=== PATIENT | male | born 1975 | race Caucasian/White ===

== ENCOUNTER 2020-04-28 04:14 | Emergency (ER) | payer SELFPAY ==
[~2020-04-28] VITALS: Ht 165 cm; Wt 77.0 kg
--- OUTSIDE RECORDS SUMMARY | 2020-04-28 04:19 | XMS REPORT | Continuity of Care Document ---
Author Organization Unknown Address Unknown Phone Unavailable Allergies There is no data. Medications There is no data. Problems There is no data. Procedures There is no data. Results There is no data. Encounters ACCT No. Visit Date/Time Discharge Status Pt. Type Provider Facility Loc./Unit Complaint [id number] 04/28/2020 04:16:[address] Emergency LATHA KOROMA DO [facility] ER SORE THROAT
[2020-04-28] MEDS ORDERED: AZIT500T PO (04:56)
--- NOTE | 2020-04-28 04:57 | ED EENT ---
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) History of Present Illness Date Seen by Provider: Apr 28, 2020 Time Seen by Provider: 04:20 Initial Comments PT ARRIVES VIA POV FROM HOME PT AND SON ARE BOTH BEING SEEN FOR EXACT SAME COMPLAINTS PT HAS HAD SYMPTOMS FOR 2 WEEKS, SON HAS HAD SYMPTOMS FOR 1 WEEK PT C/O SORE THROAT AND BILATERAL EAR PAIN NO KNOWN FEVER NO URI SYMPTOMS OR COUGH NO SHORTNESS OF BREATH NO GI SYMPTOMS NO PROBLEMS SWALLOWING HAS NOT TAKEN ANYTHING FOR SYMPTOMS SYMPTOMS NO DIFFERENT TODAY HAS NOT SOUGHT CARE UNTIL TODAY ONLY HOUSEHOLD MEMBERS ARE PT, AND SON IS NOT ILL NO KNOWN EXPOSURE TO COVID-19 OR ANY SICK CONTACTS NO ONE WORKS AT [employer] OR ANY FACTORIES. 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 PCP: MARIAM Allergies and Home Medications Allergies Coded Allergies: No Known Drug Allergies (Unverified , 10/16/12) Home Medications Azithromycin 500 Mg Tablet, 500 MG PO DAILY Prescribed by: LATHA KOROMA on 04/28/20 0456 Patient Home Medication List Home Medication List Reviewed: Yes Review of Systems Review of Systems Constitutional: no symptoms reported; No chills, No diaphoresis, No dizziness, No fever Eyes: No Symptoms Reported Ears: See HPI; Denies Dizziness; Pain; Denies Bloody Discharge, Denies Purulent Discharge, Denies Serosanguinous Discharge Nose: no symptoms reported; denies congestion Mouth: no symptoms reported Throat: see HPI, pain; denies neck stiffness, denies hoarse, denies aphonia, denies muffled, denies painful swallowing, denies difficulty with fluids Respiratory: no symptoms reported; No cough, No short of breath Cardiovascular: no symptoms reported Gastrointestinal: no symptoms reported Musculoskeletal: no symptoms reported Skin: no symptoms reported Neurological: No Symptoms Reported; Denies Headache Hematologic/Lymphatic: No Symptoms Reported Immunological/Allergic: no symptoms reported Past [id number] Hx Past Med/Social Hx: Reviewed and Corrections made Patient Social History Alcohol Use: Denies Use Recreational Drug Use: No Smoking Status: Never a Smoker Recent Foreign Travel: No Contact w/Someone Who Travel: No Recent Infectious Disease Expo: No Past Medical History Surgeries: No Respiratory: No Cardiac: No Neurological: No Genitourinary: No Gastrointestinal: No Musculoskeletal: No Endocrine: No HEENT: No Cancer: No Psychosocial: No Integumentary: No Blood Disorders: No Physical Exam Vital Signs Vital Signs - First Documented 04/28/20 04/28/20 04:36 05:02 Temp 36.4 Pulse 93 Resp 18 B/P (MAP) 103/85 (91) Pulse Ox 100 Height, Weight, BMI Height: '" Weight: lbs. oz. kg; 28.00 BMI Method: General Appearance: WD/WN, no apparent distress, other (DOES NOT APPEAR ILL OR TO BE IN ANY DISCOMFORT OR DISTRESS) Eyes: bilateral eye normal inspection, bilateral eye PERRL, bilateral eye EOMI Ears: bilateral ear auricle normal, bilateral ear canal normal, bilateral ear TM normal Nose: normal inspection Mouth/Throat: No trismus, No voice changes; other (MILD PHARYNGEAL ERYTHEMA. NO TONSILLAR OR UVULAR SWELLING OR EXUDATES. 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 Patient Instructions: Sore Throat, Adult (DC) Add. Discharge Instructions: LOTS OF CLEAR LIQUIDS TYLENOL 1 GRAM / MOTRIN 800 MG 4 TIMES A DAY NEEDED FOR PAIN OR FEVER YOU MAY GET COVID-19 TESTING DONE AT [facility] FOLLOW UP WITH YOUR DR IN 3-4 DAYS IF NO BETTER ALL HOUSEHOLD MEMBERS NEED TO STAY HOME, AND NO VISITORS FOR THE NEXT 2 WEEKS All discharge instructions reviewed with patient and/or family. Voiced understanding. Scripts Azithromycin (Zithromax) 500 Mg Tablet 500 MG PO DAILY for 5 Days, #5 TAB Prov: LATHA KOROMA DO 04/28/20 LATHA KOROMA DO Apr 28, 2020 04:57
[2020-04-28 05:02] VITALS: BP 103/85
== END 2020-04-28 05:03 | disposition home or self-care (01) ==
LOC: EDUNIT# 04:14 → ER 04:16
DX: J02.9 Acute pharyngitis, unspecified (principal); H92.03 Otalgia, bilateral
CPT/HCPCS: 87430; 99284